=== PATIENT | male | born 2000 ===

== ENCOUNTER 2018-07-22 11:27 | Outpatient (RCR) | payer BC, MEDICAID ==
[2018-07-22 11:29] VITALS: BP 116/73
[2018-07-22] MEDS ORDERED: PENTAMIDINE 300 MG INH ONE (12:00)
[2018-07-22] MEDS ORDERED: ALBUTEROL 2.5 MG/3 ML NEB NEB ONE (12:00)
== END 2018-09-19 ==
LOC: SPU 11:27
PROVIDERS: ATTEND Emergency Medicine Pediatric Emergency Medicine
DX: C81.91 Hodgkin lymphoma, unspecified, lymph nodes of head, face, and neck (principal)
CPT/HCPCS: 94640; 94642; J2545; J7613